=== PATIENT | male | born 1990 | race Hispanic/Latino ===

== ENCOUNTER → 2021-03-27 | Outpatient (REF) ==
--- NOTE | 2021-03-27 10:44 | REP ---
INDICATION: PAIN COMPARISON: None. TECHNIQUE: AP, lateral, coned-down views of the lumbar spine. FINDINGS: Three views of the lumbosacral spine demonstrate satisfactory alignment and lordosis without acute fracture / compression injury or subluxation. No significant degenerative or obvious congenital abnormalities noted. IMPRESSION: 1. No acute fracture / compression injury or subluxation. 2. No significant degenerative or obvious congenital abnormalities noted <Electronically signed by Jerald Park > 03/27/21 [id number]
--- NOTE | 2021-03-27 10:48 | REP ---
INDICATION: PAIN COMPARISON: None. TECHNIQUE: AP and frog-lateral views of the left hip FINDINGS: Hip joint appears age appropriate. No overt osteoarthritic or significant degenerative changes are appreciated. No evidence for acute or healed injury. Surrounding soft tissues are normal. IMPRESSION: Age appropriate examinations. <Electronically signed by Jerald Park > 03/27/21 [id number]
== END ==
LOC: M PLAIMG 09:41
PROVIDERS: ATTEND Internal Medicine
DX: M54.50 Low back pain, unspecified (principal); M25.552 Pain in left hip

== ENCOUNTER 2021-04-22 11:52 | Day surgery (SDC) | payer OTHER ==
[~2021-04-22] VITALS: Ht 177.8 cm; Wt 111.1 kg
[~2021-04-22 11:52] MED LIST: NS 1,000 ML IV ONE; OMEP10CASR PO
[2021-04-22] MEDS ORDERED: fentaNYL 100 MCG/2 ML INJECTION (J3010) As Ordered ONE (12:37)
[2021-04-22] MEDS ORDERED: propofoL 200 MG/20 ML VIAL As Ordered ONE (12:37)
[2021-04-22] MEDS ORDERED: LIDOCAINE 2% 100MG/5ML SDV (FOR ANES.) As Ordered ONE (12:37)
[2021-04-22 13:17] VITALS: BP 126/71
== END 2021-04-22 13:47 | disposition home or self-care (01) ==
LOC: M OPP 11:52
PROVIDERS: ATTEND Internal Medicine Gastroenterology
DX: K21.00 Gastro-esophageal reflux disease with esophagitis, without bleeding (principal); K29.70 Gastritis, unspecified, without bleeding; R12 Heartburn
CPT/HCPCS: 43239; 88305; J3010